=== PATIENT | male | born 1945 | race Caucasian/White ===

== ENCOUNTER 2019-06-29 10:21 | Emergency (ER) | payer MEDICARE ==
--- OUTSIDE RECORDS SUMMARY | 2019-06-29 10:28 | XMS REPORT | Continuity of Care Document ---
:1945 External Reference #:[id number] Author Name Facundo Garvey M.D. (transmitted by agent of provider Smitha Wu ) Address [address], [place] [address] Problems Active Problems Provider Date Type 2 diabetes mellitus Facundo Garvey M.D. Onset: 03/05/2007 Obstructive sleep apnea syndrome Facundo Garvey M.D. Onset: 03/05/2007 Note: 06/15/01 CPAP titration study. 03/23/01 study unavailable. Allergic rhinitis Facundo Garvey M.D. Onset: 03/05/2007 Gout Facundo Garvey M.D. Onset: 03/05/2007 Depressive disorder Facundo Garvey M.D. Onset: 03/05/2007 Pure hypercholesterolemia Facundo Garvey M.D. Onset: 03/05/2007 Benign essential hypertension Facundo Garvey M.D. Onset: 10/28/2011 Sleep apnea Facundo Garvey M.D. Onset: 10/28/2011 Anxiety state Facundo Garvey M.D. 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 Onset: 11/28/2016 Social History Type Date Description Comments Sex Unknown Tobacco Use Start: Unknown Never Smoked Cigarettes ETOH Use Denies alcohol use Tobacco Use Start: Unknown Patient has never smoked Recreational Drug Use Denies Drug Use Smoking Status Reviewed: 05/19/19 Patient has never smoked Exercise Type/Frequency Exercises regularly walks regularly Allergies, Adverse Reactions, Alerts Description No Known Drug Allergies Medications Active Medications SIG Qnty Indications Ordering Date Provider Yokasta finnegan tab 30 minutes 12tabs Facundo EPerry 10/24/2017 20mg Tablets prior to Marion Garvey intercourse Trulicity inject 0.75mg once 6ml E11.9 Facundo Albright 05/30/2016 0.75mg/0.5ML a week Marion Garvey Solution Pen-Inject Cpap Mask And Supplies cpap supplies - 1units Facundo Albright 03/10/2015 napoleon peguero Margie, M.D. Device tubing, filters, for sleep apnea dx 780.57 Levothyroxine Sodium Take 1 Tablet 90tabs E03.9 Facundo EPerry 11/23/2014 Every Day Marion Garvey 25mcg Tablets Levocetirizine 1 by mouth every 90tabs Facundo EPerry 11/23/2012 Dihydrochloride day Marion Garvey 5mg Tablets Allopurinol take 2 tablets 180tabs M10.9 Facundo EPerry 11/23/2012 100mg Tablets daily Marion Garvey Atorvastatin Calcium take 1 tablet at 90tabs Facundo EPerry 09/25/2011 10mg bedtime Marion Garvey Tablets Bupropion HCL take 3 tablets by 270tabs Facundo EPerry 03/02/2009 100mg mouth daily as Marion Garvey Tablets directed Metamucil Original 1 PO qpm Facundo EPerry 09/10/2007 Texture Marion Garvey 48.57% Powder Lisinopril take 1 and a half 135tabs Facundo EPeryr 06/18/2007 20mg Tablets tablets daily Marion Garvey Sonata 1 by mouth every 30caps Carmina Marci, 06/18/2007 5mg Capsules night at bedtime as needed Naprosyn pt states he 60tabs Facundo EPerry 500mg Tablets takes1/2 of 200mg Marion Garvey tab prn-----1 PO prn bid Vitamin C 1 po qd Unknown 500mg Chewtabs Fish Oil/Vitamin D 1 PO qd Unknown 1000/2000mg Capsules Dymista 1 spray each Unknown 137-50mcg/Act nostil bid Suspension Guaifenesin prn Unknown 200mg Solution Magnesium Gluconate 1 po qd Unknown 550mg Tablets Miralax 17 grams by mouth Unknown Powder every day as needed (takes a 1/2 dose daily) Fish Oil 1 tab by mouth Unknown 1000mg Capsules every morning Pataday uses as needed per Unknown 0.2% Solution ophth Medications Administered in Office Medication SIG Qnty Indications Ordering Provider Date Shingrix pharmacy administered Unknown 03/17/2019 Injection Shingrix no bill inj-pt brought in Unknown 12/15/2018 Injection Immunizations CPT Code Status Date Vaccine Lot # [id number] Given 06/12/2018 Pneumococcal Conjugate Vaccine 13 Valent For Intramuscular Use 75365 Given 05/25/2018 Fluzone High Dose 27882 Given 05/14/2017 Influenza Virus Vaccine, Quadrivalent, Split, [id number] Preservative Free 88210 Given 05/30/2016 Influenza Virus Vaccine, Quadrivalent, Split, [id number] Preservative Free 96513 Given 05/26/2015 Influenza Virus Vaccine, Quadrivalent, Split, [id number] Preservative Free 28679 Given 11/23/2014 Pneumococcal Conjugate Vaccine 13 Valent For [id number] Intramuscular Use Q2037 Given 05/19/2014 Fluvirin Im 3Yrs And Older 70713 Given 05/19/2014 Influenza Virus Vaccine, Quadrivalent, Split, [id number] Preservative Free 39417 Given 05/26/2013 Flu Vaccine Split Virus Preservative Free For [id number] Indiv 3Yr Older 35665 Given 11/23/2012 Tdap - Tetanus/Diptheria/Acellular Pertussis [id number] Q2038 Given 04/27/2012 Fluzone Vaccine [id number] Q2038 Given 06/22/2011 Fluzone Vaccine [id number] 24446 Given 06/22/2010 Influenza Virus 3Yrs & Over [id number] 84595 Given 04/04/2010 Zoster (Zostavax) [id number] 04204 Given 09/20/2009 Influenza Virus Vaccine, Pandemic Formulation 69294 Given 09/20/2009 Administration Swine Flu Shot 01070 Given 03/23/2009 Pneumonia Vaccine [id number] 49292 Given 03/24/2003 Td (History By Patient) Vital Signs Date Vital Result Comment 05/19/2019 10:47am Height 67 inches 5'7" Weight 248.00 lb Heart Rate 61 /min pts machine-63 BP Systolic Sitting 127 mmHg pts machine- 135/76 BP Diastolic Sitting 75 mmHg pts machine- 135/76 BMI (Body Mass Index) 38.8 kg/m2 11/16/2018 1:15pm Height 67 inches 5'7" Weight 245.00 lb Heart Rate 66 /min BP Systolic Sitting 126 mmHg BP Diastolic Sitting 75 mmHg Body Temperature 98.6 F O2 % BldC Oximetry 96 % BMI (Body Mass Index) 38.4 kg/m2 Results Test Date Facility Test Result H/L Range Note Laboratory test [facility] Hemoglobin A1c 5.8 % High 4.0-5.6 1 finding [address] (Glyco HGB) [place] [address] [phone] Urine Microalbumin [facility] Ur Microalbumin 18.7 mg/ L Random [address] (mg/L) [place] [address] [phone] Urine Creatinine 115.45 mg/dL Urine Microalbumin/Creatinine 16.1 Normal <31 Comp Metabolic 05/13/2019 [facility] Sodium 139 mmol/L Normal 135-[address] [place] [address] [phone] Potassium 4.4 mmol/L Normal 3.5-5.0 Chloride 106 mmol/L Normal 101-111 Co2 Carbon Dioxide 26 mmol/L Normal 22-32 Anion Gap 7 mmol/L Normal 2-11 Glucose 108 mg/dL High 70-100 Blood Urea Nitrogen 19 mg/dL Normal 6-24 Creatinine 1.49 mg/dL High 0.67-1.17 BUN/Creatinine Ratio 12.8 Normal 8-20 Calcium 9.4 mg/dL Normal 8.6-10.3 Total Protein 6.5 g/dL Normal 6.4-8.9 Albumin 4.4 g/dL Normal 3.2-5.2 Globulin 2.1 g/dL Normal 2-4 Albumin/Globulin Ratio 2.1 Normal 1-3 Total Bilirubin 0.80 mg/dL Normal 0.2-1.0 Alkaline Phosphatase 61 U/L Normal 34-104 Alt 22 U/L Normal 7-52 Ast 19 U/L Normal 13-39 Egfr Non- 46.4 >60 Egfr 56.1 >60 2 Laboratory 05/13/2019 [facility] TSH (Thyroid 5.33 Normal 0.34 -5.60 test finding [address] Stim Horm) mcIU/[place] [address] [phone] Free T4 (Free Thyroxine) 0.81 ng/dL Normal 0.61-1.12 Lipid Profile 05/13/2019 [facility] Triglycerides 160 mg/dL 3 (Trig/Chol/HDL) [address] [place] [address] [phone] Cholesterol 140 mg/dL 4 HDL Cholesterol 41.2 mg/dL 5 LDL Cholesterol 67 mg/dL 6 Laboratory test 05/13/2019 [facility] Uric Acid 6.2 mg/dL Normal 4.4-7.6 finding [address] [place] [address] [phone] 1 Therapeutic target for the treatment of diabetes mellitus patients is <7% HBA1C, and in selective patients <6.0%. Please refer to [place] Diabetes Association diabetic care guidelines for further information. 2 Because ethnic data is not always readily available, this report includes an eGFR for both -Americans and non- Americans. The National Kidney Disease Education Program (NKDEP) does not endorse the use of the MDRD equation for patients that are not between the ages of 18 and 70, are , have extremes of body size, muscle mass, or nutritional status, or are non- or non-. According to the National Kidney Foundation, irrespective of diagnosis, the stage of the disease is based on the level of kidney function: Stage Description GFR(mL/min/1.73 m(2)) 1 Kidney damage with normal or decreased GFR 90 2 Kidney damage with mild decrease in GFR 60-89 3 Moderate decrease in GFR 30-59 4 Severe decrease in GFR 15-29 5 Kidney failure <15 (or dialysis) 3 Desirable: <150 Borderline High: 150-199 High: 200-499 Very High: >500 4 Desirable: <200 Borderline High: 200-239 High: >239 5 Low: <40 Desirable: 40-60 High: >60 6 Desirable: <100 Near Optimal: 100-129 Borderline High: 130-159 High: 160-189 Very High: >189 Procedures Date Code Description Status 11/04/2018 [id number] Colonoscopy Completed 04/02/2018 [id number] Diabetic Retinal Eye Exam Completed 05/08/2016 [id number] Diabetic Retinal Eye Exam Completed 01/25/2014 [id number] Diabetic Retinal Eye Exam Completed 09/15/2008 [id number] Colonoscopy Completed Medical Devices Description No Information Available Encounters Description No Information Available Assessments Date Code Description Provider 05/19/2019 Z00.00 Encounter for general adult medical Facundo Garvey M.D. examination without abnormal findings 05/19/2019 E11.9 Type 2 diabetes mellitus without Facundo Garvey M.D. complications 05/19/2019 I10 Essential (primary) hypertension Facundo Garvey M.D. 05/19/2019 E03.9 Hypothyroidism, unspecified Facundo Garvey M.D. 05/19/2019 E78.00 Pure hypercholesterolemia, unspecified Facundo Garvey M.D. 05/19/2019 G47.33 Obstructive sleep apnea (adult) (pediatric) Facundo Garvey M.D. 05/19/2019 M10.9 Gout, unspecified Facundo Garvey M.D. 05/19/2019 F34.1 Dysthymic disorder Facundo Garvey M.D. 05/19/2019 Z12.5 Encounter for screening for malignant Facundo Garvey M.D. neoplasm of prostate Plan of Treatment Future Appointment(s):11/17/2019 11:40 am - Facundo Garvey M.D. at [facility] - [facility]07/02/2019 11:30 am - Carmina Covarrubias MD at [facility]05/19/2019 - Facundo Garvey M.D.Z00.00 Encounter for general adult medical examination without abnormal wlywneewJ01.9 Type 2 diabetes mellitus without complicationsFollow up:6 months with repeat A1c or prnI10 Essential (primary) rojgqbnxohoqC52.9 Hypothyroidism, jofyvgmacapI53.00 Pure hypercholesterolemia, ehgxmytredgF74.33 Obstructive sleep apnea (adult) (pediatric)M10.9 Gout, gqtobcphamoU86.1 Dysthymic iuwhuiylZ15.5 Encounter for screening for malignant neoplasm of prostate Functional Status Description No Information Available Mental Status Description No Information Available Referrals Description No Information Available
--- OUTSIDE RECORDS SUMMARY | 2019-06-29 10:28 | XMS REPORT | Continuity of Care Document ---
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 Onset: 11/28/2016 Social History Type Date Description Comments Sex Unknown Tobacco Use Start: Unknown Never Smoked Cigarettes ETOH Use Denies alcohol use Tobacco Use Start: Unknown Patient has never smoked Recreational Drug Use Denies Drug Use Smoking Status Reviewed: 06/04/19 Patient has never smoked Exercise Type/Frequency Exercises regularly walks regularly Allergies, Adverse Reactions, Alerts Description No Known Drug Allergies Medications Active Medications SIG Qnty Indications Ordering Date Provider Yokasta finnegan tab 30 minutes 12tabs Facundo EPerry 10/24/2017 20mg Tablets prior to Marion Garvey intercourse Trulicity inject 0.75mg once 6ml E11.9 Facundo EPerry 05/30/2016 0.75mg/0.5ML a week Marion Garvey Solution Pen-Inject Cpap Mask And Supplies cpap supplies - 1units Facundo EPerry 03/10/2015 napoleon peguero Margie, M.D. Device tubing, [...] take 1 and a half 135tabs Facundo EPerry 06/18/2007 20mg Tablets tablets daily Marion Garvey Sonata 1 by mouth every 30caps Carmina Marci, 06/18/2007 5mg Capsules night at bedtime as needed Naprossourav pt states he 60tabs Facundo E. 500mg Tablets takes1/2 of 200mg Marion Garvey [...] as needed (takes a 1/2 dose daily) Pataday uses as needed per Unknown 0.2% Solution ophth Medications Administered in Office Medication SIG Qnty Indications Ordering Provider Date Shingrix pharmacy administered Unknown 03/17/2019 Injection Shingrix no bill inj-pt brought in Unknown 12/15/2018 Injection Immunizations CPT Code Status Date Vaccine Lot # [id number] Given 06/12/2018 Pneumococcal Conjugate Vaccine 13 Valent For Intramuscular Use 55578 Given 05/25/2018 Fluzone High Dose 29183 Given 05/14/2017 Influenza Virus Vaccine, Quadrivalent, Split, [id number] Preservative Free 81899 Given 05/30/2016 Influenza Virus Vaccine, Quadrivalent, Split, [id number] Preservative Free 27708 Given 05/26/2015 Influenza Virus Vaccine, Quadrivalent, Split, [id number] Preservative Free 96741 Given 11/23/2014 Pneumococcal Conjugate Vaccine 13 Valent For [id number] Intramuscular Use Q2037 Given 05/19/2014 Fluvirin Im 3Yrs And Older 94685 Given 05/19/2014 Influenza Virus Vaccine, Quadrivalent, Split, [id number] Preservative Free 90603 Given 05/26/2013 Flu Vaccine Split Virus Preservative Free For [id number] Indiv 3Yr Older 43658 Given 11/23/2012 Tdap - Tetanus/Diptheria/Acellular Pertussis [id number] Q2038 Given 04/27/2012 Fluzone Vaccine [id number] Q2038 Given 06/22/2011 Fluzone Vaccine [id number] 62835 Given 06/22/2010 Influenza Virus 3Yrs & Over [id number] 86638 Given 04/04/2010 Zoster (Zostavax) [id number] 50582 Given 09/20/2009 Influenza Virus Vaccine, Pandemic Formulation 55679 Given 09/20/2009 Administration Swine Flu Shot 19818 Given 03/23/2009 Pneumonia Vaccine [id number] 77847 Given 03/24/2003 Td (History By Patient) Vital Signs Date Vital Result Comment 06/04/2019 10:38am Height 67 inches 5'7" Weight 246.12 lb Heart Rate 62 /min BP Systolic Sitting 132 mmHg Lue large cuff BP Diastolic Sitting 70 mmHg Lue large cuff Respiratory Rate 24 /min O2 % BldC Oximetry 96 % On Ra BMI (Body Mass Index) 38.5 kg/m2 05/19/2019 10:47am Height 67 inches 5'7" Weight 248.00 lb Heart Rate 61 /min pts machine-63 BP Systolic Sitting 127 mmHg pts machine- 135/76 BP Diastolic Sitting 75 mmHg pts machine- 135/76 BMI (Body Mass Index) 38.8 kg/m2 Results Test Date Facility Test Result H/L Range Note Laboratory test [facility] Hemoglobin A1c 5.8 % High 4.0-5.6 1 finding [address] (Glyco HGB) [place] [address] [phone] Urine Microalbumin [facility] Ur Microalbumin 18.7 mg/ L Random [address] (mg/L) [place] [address] [phone] Urine Creatinine 115.45 mg/dL Urine Microalbumin/Creatinine 16.1 Normal <31 Comp Metabolic 05/13/2019 [facility] Sodium 139 mmol/L Normal 135-[address] [place] [address] [phone] Potassium 4.4 mmol/L Normal 3.5-5.0 Chloride 106 [...] >60 Egfr 56.1 >60 2 Laboratory 05/13/2019 [facility] TSH (Thyroid 5.33 Normal 0.34 -5.60 test finding [address] [facility] Stim Horm) mcIU/[place] [address] [phone] Free T4 (Free Thyroxine) 0.81 ng/dL Normal 0.61-1.12 Lipid Profile 05/13/2019 [facility] Triglycerides 160 mg/dL 3 (Trig/Chol/HDL) [address] [place] [address] [phone] Cholesterol 140 mg/dL 4 HDL Cholesterol 41.2 mg/dL 5 LDL Cholesterol 67 mg/dL 6 Laboratory test 05/13/2019 [facility] Uric Acid 6.2 mg/dL Normal 4.4-7.6 finding [address] [place] [address] [phone] 1 Therapeutic target for the treatment of diabetes mellitus patients is <7% HBA1C, and in selective patients <6.0%. Please refer to [place] [employer] diabetic care guidelines for further [...] >189 Procedures Date Code Description Status 11/04/2018 [id number] Colonoscopy Completed 04/02/2018 [id number] Diabetic Retinal Eye Exam Completed 05/08/2016 [id number] Diabetic Retinal Eye Exam Completed 01/25/2014 [id number] Diabetic Retinal Eye Exam Completed 09/15/2008 [id number] Colonoscopy Completed Medical Devices Description No Information Available Encounters Type Date Location Provider Dx Diagnosis Office Visit 06/04/2019 Pulmonology And Carmina Covarrubias, G47.33 Obstructive sleep 10:45a [facility] apnea (adult) [facility] (pediatric) Assessments Date Code Description Provider 06/04/2019 G47.33 Obstructive sleep apnea (adult) (pediatric) Carmina Covarrubias MD 05/19/2019 Z00.00 Encounter for general adult medical Facundo Garvey M.D. examination without abnormal findings 05/19/2019 E11.9 Type 2 diabetes mellitus without Facundo Garvey M.D. complications 05/19/2019 I10 Essential (primary) hypertension Facundo Garvey M.D. 05/19/2019 E03.9 Hypothyroidism, unspecified Facundo Garvey M.D. 05/19/2019 E78.00 Pure hypercholesterolemia, nimcoified Facundo Garvey M.D. 05/19/2019 G47.33 Obstructive sleep apnea (adult) (pediatric) Facundo Garvey M.D. 05/19/2019 M10.9 Gout, nimcoified Facundo Garvey M.D. 05/19/2019 F34.1 Dysthymic disorder Facundo Garvey M.D. 05/19/2019 Z12.5 Encounter for screening for malignant Facundo Garvey M.D. neoplasm of prostate Plan of Treatment Future Appointment(s):06/05/2020 11:30 am - Carmina Covarrubias MD at [facility]11/17/2019 11:40 am - Facundo Garvey M.D. at [facility] Internal Medicine - [facility]06/04/2019 - Carmina Covarrubias MDG47.33 Obstructive sleep apnea (adult) (pediatric)Follow up:1 year Functional Status Description No Information Available Mental Status Description No Information Available Referrals Description No Information Available
[2019-06-29 10:54] VITALS: BP 135/82
--- NOTE | 2019-06-29 11:15 | UC ---
Skin Complaint HPI - HPI Summary HPI Summary: Very nice 74-year-old male who had a tick bite less than 12 hours embedded in his left upper leg. His was able to remove the entire tick. He also states he's had itchy ears and he wanted his left ear checked because he may have a piece of his hearing aid left in that. - History of Current Complaint Chief Complaint: UCGeneralIllness Time Seen by Provider: 06/29/19 10:44 Stated Complaint: EAR ISSUE TICK BITE Hx Obtained From: Patient Onset/Duration: Gradual Onset Skin Exposure Onset/Duration: Hours Ago Timing: Constant Onset Severity: Mild Current Severity: Mild Pain Intensity: 0 Location: Ear (Left) - Patient thinks the hearing aid piece may be in his left ear. The tick bite is in his left upper leg. Character: Pruritus - Patient has had some itchiness to his ears which is an ongoing chronic problem however he feels there is a tender spot just at the entrance to the left ear canal. Aggravating Factor(s): Touch Alleviating Factor(s): Nothing Associated Signs & Symptoms: Positive: Negative - Allergy/Home Medications Allergies/Adverse Reactions: Allergies Allergy/AdvReac Type Severity Reaction Status Date / Time No Known Allergies Allergy Verified 06/29/19 10:45 PMH/Surg Hx/FS Hx/Imm Hx Previously Healthy: Yes Endocrine History: Diabetes, Thyroid Disease Cardiovascular History: Hypertension - Surgical History Surgical History: None - Family History Known Family History: Positive: Non-Contributory - Social History Occupation: Retired Alcohol Use: None Substance Use Type: None Smoking Status (MU): Never Smoked Tobacco Review of Systems All Other Systems Reviewed And Are Negative: Yes Skin: Positive: Other - Patient has a tick bite left upper leg, his was able to remove the tick. He states that had been on less than 12 hours. She also wants a tender area of his left ear canal checked and he thinks he may have a piece of his hearing aid in his ear canal. Is Patient Immunocompromised?: No Physical Exam Triage Information Reviewed: Yes Appearance: Well-Appearing, No Pain Distress, Well-Nourished Vital Signs: Initial Vital Signs Temp 97.9 F 06/29/19 10:48 Pulse 58 06/29/19 10:48 Resp 18 06/29/19 10:48 BP 135/82 06/29/19 10:48 Pulse Ox 97 06/29/19 10:48 Vital Signs Reviewed: Yes ENT: Positive: Other - Patient has a very small wart like lesion at the inferior entrance to his left ear canal measuring approximately 3 mm in diameter. It is mildly tender on palpation. The patient also has the dome of his hearing aid extremely distal in his ear canal to the point where I will be unable to reach it. The rest of the ear canal appears normal. Skin: Positive: Other - Patient has a tick bite to his left upper leg. No residual tick parts are visualized using magnification. Course/Dx - Course Course Of Treatment: The patient is comfortable here. He prefers not to take prophylactic doxycycline because of the low risk of Lyme disease. He is going to follow up with his ear nose and throat physician for removal of the piece of his hearing aid as well as visualization of the small lesion in his exterior ear canal. - Diagnoses Provider Diagnosis: Tick bite, Foreign body in left ear Discharge ED - Sign-Out/Discharge Documenting (check all that apply): Patient Departure All imaging exams completed and their final reports reviewed: No Studies - Discharge Plan Condition: Good Disposition: HOME Patient Education Materials: Tick Bite (ED), Ear Foreign Body (ED) Referrals: Facundo Garvey MD [Primary Care Provider] - Derrek Hawley MD [Medical Doctor] - Additional Instructions: Follow-up with your primary care provider if you develop fever, chills, body aches or rashes. Follow-up with the ear nose and throat physician in the next day or 2 to have the hearing aid piece removed. - Billing Disposition and Condition Condition: GOOD Disposition: Home
== END 2019-06-29 11:19 | disposition home or self-care (01) ==
LOC: UCEAST 10:21
DX: S70.362A Insect bite (nonvenomous), left thigh, initial encounter (principal); T16.2XXA Foreign body in left ear, initial encounter; H93.8X2 Other specified disorders of left ear; E11.9 Type 2 diabetes mellitus without complications; I10 Essential (primary) hypertension; W57.XXXA Bitten or stung by nonvenomous insect and other nonvenomous arthropods, initial encounter; X58.XXXA Exposure to other specified factors, initial encounter; Y92.9 Unspecified place or not applicable
CPT/HCPCS: 99211; G0463

== ENCOUNTER 2019-10-27 08:31 | Day surgery (SDC) | payer MEDICARE ==
[~2019-10-27 08:31] MED LIST: Acetaminophen TAB* 325 MG PO PRN; Buffered Lidocaine 1% SYRIN* 1 ML/SYRINGE INTRADERM ONE
[2019-10-27] MEDS ORDERED: Neomycin/Polymy/Dex OPTH.SUSP* MAXITROL 0.1% 5 ML ONE (09:33)
[2019-10-27] MEDS ORDERED: Povidone Iodine 5% OPTH* 30 ML BTL ONE (09:33)
[2019-10-27] MEDS ORDERED: Phenylephrine OPHTH SOL 2.5%* 2 ML ONE (09:33)
[2019-10-27] MEDS ORDERED: Lidocaine 2% w/ EPI 1:200,000* 20 ML SDV VIAL ONE (09:33)
[2019-10-27] MEDS ORDERED: Proparacaine 0.5% OPHTH.SOL* 15 ML BTL ONE (09:33)
[2019-10-27] MEDS ORDERED: Ketorolac 0.5% OPHTH (NF) 0.5 % 5 ML BTL ONE (09:33)
[2019-10-27] MEDS ORDERED: Lidocaine 1% MPF ** 5 ML VIAL ONE (09:33)
[2019-10-27] MEDS ORDERED: acetaZOLAMIDE TAB* 250 MG ONE (09:33)
[2019-10-27] MEDS ORDERED: Cyclopentolate 1% OPTH.SOL* 2 ML BTL ONE (09:33)
[2019-10-27] MEDS ORDERED: fentaNYL* 50 MCG/ML 2 ML VIAL (100 MCG VIAL) ONE (10:22)
[2019-10-27] MEDS ORDERED: Midazolam* 1 MG/ML 2 ML VIAL (2 MG) ONE (10:22)
--- NOTE | 2019-10-27 11:46 | OP ---
DATE OF OPERATION: 10/27/2019. DATE OF : 1945. SURGEON: Derrek Carr M.D. PREOPERATIVE DIAGNOSIS: Cataract right eye. POSTOPERATIVE DIAGNOSIS: Cataract right eye. OPERATIVE PROCEDURE: Extracapsular cataract extraction with intraocular lens implant right eye. PROCEDURE: The patient was brought to the operating room after being given 1/2% Alcaine with epineph rine drops in the preoperative area. The eye was prepped and draped in the usual sterile fashion. S terile drape and eyelid speculum were placed. Again, topical 1/2% Alcaine with epinephrine was given . A paracentesis incision was made at the 9 o'clock position with the No.75 blade. Clear cornea inc ision 2.2 x 2.2-mm was created at the 12 o'clock position starting at the anterior limbus using the 2 .2-mm keratome. The anterior chamber was irrigated with 0.4 mL of 1% non-preservative intracameral l idocaine and filled with DisCoVisc. A capsulorrhexis was completed using the cystotome and the Utrat a forceps. Hydrodissection was performed with balanced salt solution. The lens nucleus was removed w ith the Phacoemulsification handpiece without incident. Cortex was removed with the irrigation-aspir ation handpiece. The capsular bag was re-inflated using DisCoVisc and an [id number] implant was inser naya with the shooter. The irrigation-aspiration handpiece was used to remove all residual DisCoVisc. The eye was refilled with balanced salt solution and the wound checked and found to be watertight. Topical Maxitrol drops were given. [id number]/[facility] #: [id number]
[2019-10-27 12:03] VITALS: BP 110/67
== END 2019-10-27 11:30 | disposition home or self-care (01) ==
LOC: OREAST 08:31
PROVIDERS: ATTEND Specialist
DX: H25.811 Combined forms of age-related cataract, right eye (principal); I10 Essential (primary) hypertension; E78.00 Pure hypercholesterolemia, unspecified; E03.9 Hypothyroidism, unspecified; E11.9 Type 2 diabetes mellitus without complications; F41.8 Other specified anxiety disorders; G47.33 Obstructive sleep apnea (adult) (pediatric); J30.89 Other allergic rhinitis
CPT/HCPCS: A9270-GY; J2250; J3010; V2632

== ENCOUNTER 2019-11-03 10:16 | Day surgery (SDC) | payer MEDICARE ==
[~2019-11-03 10:16] MED LIST changes: +Cyclopentolate 1% OPTH.SOL* 2 ML BTL ONE; +Ketorolac 0.5% OPHTH (NF) 0.5 % 5 ML BTL ONE; +Lidocaine 1% MPF ** 5 ML VIAL ONE; +Lidocaine 2% w/ EPI 1:200,000* 20 ML SDV VIAL ONE; +Neomycin/Polymy/Dex OPTH.SUSP* MAXITROL 0.1% 5 ML ONE; +Phenylephrine OPHTH SOL 2.5%* 2 ML ONE; +Povidone Iodine 5% OPTH* 30 ML BTL ONE; +Proparacaine 0.5% OPHTH.SOL* 15 ML BTL ONE; +acetaZOLAMIDE TAB* 250 MG ONE
[2019-11-03] MEDS ORDERED: fentaNYL* 50 MCG/ML 2 ML VIAL (100 MCG VIAL) ONE (10:39)
[2019-11-03] MEDS ORDERED: Midazolam* 1 MG/ML 5 ML VIAL (5 MG) ONE (10:39)
[2019-11-03 12:36] VITALS: BP 118/57
--- NOTE | 2019-11-03 12:55 | OP ---
DATE OF OPERATION: 11/03/2019. DATE OF : 1945. SURGEON: Derrek Carr M.D. PREOPERATIVE DIAGNOSIS: Cataract left eye. POSTOPERATIVE DIAGNOSIS: Cataract left eye. OPERATIVE PROCEDURE: Extracapsular cataract extraction with intraocular lens implant left eye. PROCEDURE: The patient was brought to the operating room after being given 1/2% Alcaine with epineph rine drops in the preoperative area. The eye was prepped and draped in the usual sterile fashion. S terile drape and eyelid speculum were placed. Again, topical 1/2% Alcaine with epinephrine was given . A paracentesis incision was made at the 3 o'clock position with the No.75 blade. Clear cornea inc ision 2.2 x 2.2-mm was created at the 6 o'clock position starting at the anterior limbus using the 2. 2-mm keratome. The anterior chamber was irrigated with 0.4 mL of 1% non-preservative intracameral li docaine and filled with DisCoVisc. A capsulorrhexis was completed using the cystotome and the Utrata forceps. Hydrodissection was performed with balanced salt solution. The lens nucleus was removed wi th the Phacoemulsification handpiece without incident. Cortex was removed with the irrigation-aspira tion handpiece. The capsular bag was re-inflated using DisCoVisc and an [id number] implant was insert ed with the shooter. The irrigation-aspiration handpiece was used to remove all residual DisCoVisc. The eye was refilled with balanced salt solution and the wound checked and found to be watertight. Topical Maxitrol drops were given. [id number] #: [id number]
== END 2019-11-03 12:32 | disposition home or self-care (01) ==
LOC: OREAST 10:16
PROVIDERS: ATTEND Specialist
DX: H25.812 Combined forms of age-related cataract, left eye (principal); I10 Essential (primary) hypertension; E11.9 Type 2 diabetes mellitus without complications; E78.00 Pure hypercholesterolemia, unspecified; E03.9 Hypothyroidism, unspecified; F41.8 Other specified anxiety disorders; M10.9 Gout, unspecified
CPT/HCPCS: A9270-GY; J2250; J3010; V2632